=== PATIENT | female | born 1935 | race Two or more races ===

== ENCOUNTER 2019-05-23 10:23 | Emergency (ER) | payer MEDICARE, MEDICAID ==
[~2019-05-23] VITALS: Ht 165.1 cm; Wt 63.5 kg
[2019-05-23] MEDS ORDERED: Gastrograffin 30ml ORAL ONE (10:45)
--- NOTE | 2019-05-23 10:45 | NUR ---
ED Nurse Note: Pt brought in by ambulance from SNF. Pt pulled out G tube last night in SNF. SNF placed in 16 F [place]. MD Argaon aware. Pt is alert and orientedx0, has skin tear L arm. Pt keeps mumbling inchorerent words and is restless. VSS. Pt set up monitor.
[2019-05-23] MEDS ORDERED: NAMENDA5 MG ORAL (10:56)
[2019-05-23] MEDS ORDERED: VITAMIN D400 UNI2 PO (10:56)
[2019-05-23] MEDS ORDERED: SENOKOT8.6 MG PO (10:56)
[2019-05-23] MEDS ORDERED: QUETIAPINE FUMA25 MG ORAL (10:56)
--- NOTE | 2019-05-23 11:00 | NUR ---
ED Nurse Note: 16 F juliano pt arrived with from SNF. Dr Aragon removed this at 1100 and input G tube. XR notified.
--- NOTE | 2019-05-23 11:04 | NUR ---
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
[2019-05-23 11:05] VITALS: BP 112/52
--- NOTE | 2019-05-23 11:40 | Emergency Room Report ---
History of Present Illness General Chief Complaint: Malfunctioning Gastric Tube Source: Medical Record, EMS Present Illness HPI Patient is an 83-year-old female medical history of COPD, schizophrenia, epilepsy, failure to thrive, anxiety, diabetes, encephalopathy, heart failure, insomnia and dementia who is brought in to the emergency room for malfunctioning G-tube. Per EMS patient's G-tube fell out and a Foreman catheter is been placed. Unable to obtain further history from the patient. Allergies: Coded Allergies: No Known Allergies (Unverified , 03/01/14) Patient History Last Menstrual Period: na Reviewed Nursing Documentation: PMH: Agreed; PSxH: Agreed Nursing Documentation-PMH Past Medical History: No History, Except For Hx Hypertension: Yes Hx COPD: Yes Hx Diabetes: Yes History Of Psychiatric Problem: Yes - schizophrenia, deentia Review of Systems All Other Systems: limited - dementia Physical Exam Vital Signs Date Time Temp Pulse Resp B/P (MAP) Pulse Ox O2 Delivery O2 Flow Rate FiO2 05/23/19 10:24 98.1 86 20 108/56 (73) 98 Room Air Sp02 EP Interpretation: reviewed, normal General Appearance: non-toxic, mild distress Head: normocephalic, atraumatic Eyes: bilateral eye normal inspection, bilateral eye PERRL ENT: hearing grossly normal, no angioedema, normal voice Neck: full range of motion, supple/symm/no masses Respiratory: chest non-tender, lungs clear, normal breath sounds, speaking full sentences Cardiovascular #1: regular rate, rhythm, no edema Cardiovascular #2: 2+ carotid (R), 2+ carotid (L), 2+ radial (R), 2+ radial (L) , 2+ dorsalis pedis (R), 2+ dorsalis pedis (L) Gastrointestinal: normal bowel sounds, non tender, soft, non-distended, no guarding, no rebound, other - 16 [place] Foreman catheter in the epigastric region Rectal: deferred Genitourinary: normal inspection, no CVA tenderness Musculoskeletal: back normal, normal range of motion, calf tenderness, gait/ station normal, non-tender Lymphatic: no adenopathy Procedures Additional Procedure Procedure Narrative G-tube replacement epigastric region 16 [place] placement verified with x-ray Medical Decision Making Diagnostic Impression: Primary Impression: Gastrostomy tube dysfunction ER Course G-tube was replaced. Placement verified with x-ray. Patient discharged in stable condition to her extended care facility. Last Vital Signs Date Time Temp Pulse Resp B/P (MAP) Pulse Ox O2 Delivery O2 Flow Rate FiO2 05/23/19 11:05 98.1 81 20 112/52 99 Room Air Disposition: XFER SNF Condition: Stable Frida Potter M.D. May 23, 2019 11:40
--- NOTE | 2019-05-23 11:43 | NUR ---
report given to zoran rn patient is to be transferd back to [facility] via ambulance
[2019-05-23 12:40] VITALS: BP 115/62
--- NOTE | 2019-05-23 12:40 | NUR ---
ER DISCHARGE NOTE: Patient is cleared to be discharged per ERMD, pt is aox0, on room air, with stable vital signs. pt id band removed. pt taken by ambulance. pt took all belongings.
--- NOTE | 2019-05-23 13:19 | Diagnostic Imaging Report ---
Indication: Abdominal pain Comparison: None Single view of the abdomen obtained Findings: Contrast injected into the gastrostomy. Contrast is seen within the fundus of the stomach. There is no extravasation identified. There is a moderate to severe retention of stool within the colon. IMPRESSION: No contrast extravasation identified. The tip of the catheter is in the fundal region of the stomach.
== END 2019-05-23 12:40 ==
LOC: EDBD 10:23 → EDUNIT# 10:23 → EMR 12:10
DX: K94.29 Other complications of gastrostomy (principal); F03.90 Unspecified dementia, unspecified severity, without behavioral disturbance, psychotic disturbance, mood disturbance, and anxiety; E11.9 Type 2 diabetes mellitus without complications; I11.0 Hypertensive heart disease with heart failure; I50.9 Heart failure, unspecified; J44.9 Chronic obstructive pulmonary disease, unspecified; G40.909 Epilepsy, unspecified, not intractable, without status epilepticus; F20.9 Schizophrenia, unspecified; F41.9 Anxiety disorder, unspecified
CPT/HCPCS: 43762; 74018; 99284; Q9963